=== PATIENT | male | born 1975 | race Caucasian/White ===

== ENCOUNTER 2024-05-27 11:48 | Inpatient (IN) | payer OTHER ==
[2024-05-27 12:28] VITALS: BMI 27.1
[2024-05-27] MEDS ORDERED: BISMUTH SUBSALICYLATE 524 MG/30 ML PO PRN (12:45)
[2024-05-27] MEDS ORDERED: ACETAMINOPHEN 325 MG TABLET (FP) PO PRN (12:45)
[2024-05-27] MEDS ORDERED: NALOXONE (NARCAN) HCL 4 MG/0.1 ML SPRAY NS PRN (12:45)
[2024-05-27] MEDS ORDERED: NICOTINE POLACRILEX 2 MG LOZENGE BC PRN (12:45)
[2024-05-27] MEDS ORDERED: ONDANSETRON *ODT* 4 MG TABLET SL PRN (12:45)
[2024-05-27] MEDS ORDERED: DICYCLOMINE HCL 10 MG CAPSULE PO PRN (12:45)
[2024-05-27] MEDS ORDERED: BENZOCAINE/MENTHOL (CHLORASEPTIC ) LOZENGE MM PRN (12:45)
[2024-05-27] MEDS ORDERED: guaiFENesin 600 MG TABLET.ER (FP) PO PRN (12:45)
[2024-05-27] MEDS ORDERED: BENZONATATE 200 MG CAPSULE PO PRN (12:45)
[2024-05-27] MEDS ORDERED: amLODIPine BESYLATE 5 MG TABLET (FP) ONE ×2 (12:45→12:47)
[2024-05-27] MEDS ORDERED: NICOTINE POLACRILEX 2 MG GUM BUC PRN (12:45)
[2024-05-27] MEDS ORDERED: IBUPROFEN 400 MG TABLET (FP) PO PRN (12:45)
[2024-05-27] MEDS ORDERED: LOPERAMIDE HCL 2 MG CAPSULE PO PRN (12:45)
[2024-05-27] MEDS: amLODIPine BESYLATE 10 MG TABLET (FP) PO ONE (12:49)
[2024-05-27] MEDS: amLODIPine BESYLATE 5 MG TABLET (FP) PO ONE (13:45)
[2024-05-27] MEDS ORDERED: diazePAM 5 MG TABLET ONE (13:53)
[2024-05-27] MEDS ORDERED: NICOTINE 21 MG/24 HOURS TOPICAL PATCH ONE (13:53)
[2024-05-27] MEDS ORDERED: INSULIN (NOVOLOG) ASPART 100 UNITS/ML 10ML VIAL ONE ×2 (13:54→17:12)
[2024-05-27] MEDS ORDERED: HYDROCHLOROTHIAZIDE 12.5 MG CAPSULE (FP) ONE (13:55)
[2024-05-27] MEDS: HYDROCHLOROTHIAZIDE 12.5 MG CAPSULE (FP) PO SCH (13:57)
[2024-05-27] MEDS: diazePAM 5 MG TABLET PO SCH (13:57)
[2024-05-27] MEDS: NICOTINE 21 MG/24 HOURS TOPICAL PATCH TD SCH (13:57)
[2024-05-27] MEDS: INSULIN (NOVOLOG) ASPART 100 UNITS/ML 10ML VIAL SQ ONE (13:58)
[2024-05-27] MEDS: INSULIN (NOVOLOG) ASPART 100 UNITS/ML 10ML VIAL SQ SCH (16:32)
[2024-05-27] MEDS: metFORMIN HCL 500 MG TABLET (FP) PO SCH (16:33)
[2024-05-27] MEDS: diazePAM 5 MG TABLET PO PRN (19:50)
[2024-05-27] MEDS: IBUPROFEN 600 MG TABLET (FP) PO PRN (19:51)
[2024-05-27] MEDS: METOPROLOL TARTRATE 25 MG TABLET (FP) PO ONE (20:01)
[2024-05-27] MEDS: MELATONIN 5 MG TABLETS PO SCH (22:22)
[2024-05-27] MEDS: METHOCARBAMOL 500 MG TABLET PO PRN (22:22)
[2024-05-27] MEDS: ATORVASTATIN CA 20 MG TABLET (FP) PO SCH (22:22)
[2024-05-27] MEDS: THIAMINE 100 MG TABLET PO SCH (22:23)
[2024-05-27] MEDS: hydrOXYzine PAMOATE 25 MG CAPSULE (FP) PO PRN (22:25)
[2024-05-28] MEDS: ESCITALOPRAM OXALATE 10 MG TABLET PO SCH (09:25)
[2024-05-28] MEDS: ASPIRIN COATED 81 MG TABLET.EC PO SCH (09:25)
[2024-05-28] MEDS: PRENATAL VITAMINS W/ FOLIC ACID TABLET (FP) PO SCH (09:25)
[2024-05-28] MEDS: amLODIPine BESYLATE 10 MG TABLET (FP) PO SCH (09:25)
[2024-05-28 11:25] LABS: POTASSIUM 4.6 mmol/L (3.5-5.1)
[2024-05-28 11:32] LABS: HEMATOCRIT 45.4 % (35.4-49); HEMOGLOBIN 15.1 GM/dL (11.7-16.9); MCHC 33.3 g/dl (32.0-35.9); MEAN CELL VOLUME 90.2 fl (80-96); MEAN PLT VOLUME 9.3 fl (7.5-11.1); PLATELET COUNT 263 10^3/uL (134-434); RBC 5.04 M/mm3 (4.00-5.60); RDW 12.9 % (11.9-15.9); WHITE BLOOD COUNT 12.8 K/mm3 (4.0-10.0)
[2024-05-28 11:34] LABS: ALBUMIN 4.9 g/dl (3.4-5.0); CALCIUM 10.5 mg/dL (8.5-10.1)
[2024-05-28 11:35] LABS: BLOOD UREA NITROGEN 19.2 mg/dL (7-18)
[2024-05-28 11:38] LABS: CREATININE 1.5 mg/dL (0.55-1.3)
[2024-05-28 11:39] LABS: BILIRUBIN,TOTAL 0.3 mg/dL (0.2-1)
[2024-05-28] MEDS ORDERED: methaDONE HCL 40 MG DISPERSABLE TABLET PO ONE (12:48)
[2024-05-28] MEDS ORDERED: metFORMIN HCL 500 MG TABLET (FP) PO SCH (17:00)
[2024-05-28] MEDS ORDERED: INSULIN (NOVOLOG) ASPART 100 UNITS/ML 10ML VIAL ONE ×2 (17:35→22:13)
[2024-05-28] MEDS ORDERED: ATORVASTATIN CA 10 MG TABLET (FP) PO SCH (22:00)
[2024-05-28] MEDS: SUVOREXANT 10 MG TABLET PO PRN (22:25)
[2024-05-29] MEDS: diazePAM 5 MG TABLET PO SCH (05:35)
[2024-05-29] MEDS: MAG HYDROX/AL HYDROX/SIMETH 30 ML UNIT-DOSE CUP PO PRN (12:52)
[2024-05-29] MEDS ORDERED: INSULIN (NOVOLOG) ASPART 100 UNITS/ML 10ML VIAL ONE ×2 (16:51→22:33)
[2024-05-29] MEDS: MAGNESIUM HYDROX 2400MG/30ML ORAL SUSPENSION 30 ML CUP PO PRN (17:17)
[2024-05-29] MEDS: POLYETHYLENE GLYCOL (HEALTHYLAX) 3350 17 GM PACKET PO PRN (22:47)
[2024-05-30] MEDS: diazePAM 5 MG TABLET PO SCH (05:32)
[2024-05-30] MEDS ORDERED: INSULIN (NOVOLOG) ASPART 100 UNITS/ML 10ML VIAL ONE (05:37)
[2024-05-30] MEDS: INSULIN (NOVOLOG) ASPART 100 UNITS/ML 10ML VIAL SQ SCH (17:49)
[2024-05-31] MEDS: diazePAM 5 MG TABLET PO ONE (05:58)
[2024-05-31] MEDS: PANTOPRAZOLE 40 MG TABLET PO SCH (15:19)
[2024-05-31] MEDS ORDERED: INSULIN (NOVOLOG) ASPART 100 UNITS/ML 10ML VIAL ONE ×2 (17:07→21:37)
[2024-06-01] MEDS: NALOXONE (NYS OPIOID OVERDOSE PROGRAM) 4 MG/0.1 ML SPRAY NS SCH (09:49)
[2024-06-01] MEDS ORDERED: INSULIN (NOVOLOG) ASPART 100 UNITS/ML 10ML VIAL ONE ×4 (11:24→23:21)
[2024-06-02] MEDS ORDERED: INSULIN ASPART SLIDING SCALE (NOVOLOG) 1 VIAL SQ ONE (08:07)
[2024-06-02 08:59] VITALS: BP 133/82; PULSE 75; RESP 16; TEMP 97.6
[2024-06-02 09:03] LABS: POTASSIUM 3.7 mmol/L (3.5-5.1)
[2024-06-02 09:05] LABS: ALBUMIN 3.5 g/dl (3.4-5.0); BLOOD UREA NITROGEN 18.2 mg/dL (7-18); CALCIUM 8.8 mg/dL (8.5-10.1)
[2024-06-02 09:08] LABS: CREATININE 0.9 mg/dL (0.55-1.3); PHOSPHOROUS 3.9 mg/dL (2.5-4.9)
[2024-06-02 09:12] LABS: BASO % 0.6 % (0-2.0); EOS % 3.4 % (0-4.5); HEMOGLOBIN 13.2 GM/dL (11.7-16.9); LYMPH % 42.8 % (8-40); MCHC 35.5 g/dl (32.0-35.9); MEAN CELL VOLUME 87.3 fl (80-96); MEAN PLT VOLUME 8.5 fl (7.5-11.1); NEUT % 40.2 % (42.8-82.8); PLATELET COUNT 193 10^3/uL (134-434); RBC 4.25 M/mm3 (4.00-5.60); RDW 12.8 % (11.9-15.9); WHITE BLOOD COUNT 6.8 K/mm3 (4.0-10.0)
[2024-06-02] MEDS: methaDONE HCL 40 MG DISPERSABLE TABLET PO ONE (09:49)
[2024-06-02] MEDS ORDERED: INSULIN (NOVOLOG) ASPART 100 UNITS/ML 10ML VIAL ONE (11:06)
== END 2024-06-02 12:27 | disposition home or self-care (01) | DRG 773 ==
LOC: YASAS 11:48 → Y6N 13:14
PROVIDERS: ADMIT Allergy & Immunology; ATTEND Surgery
PROC: HZ2ZZZZ Detoxification Services for Substance Abuse Treatment (ICD-10-PCS; principal; 2024-05-27)
DX: F10.230 Alcohol dependence with withdrawal, uncomplicated (principal); F11.20 Opioid dependence, uncomplicated; F14.10 Cocaine abuse, uncomplicated; F17.210 Nicotine dependence, cigarettes, uncomplicated; F19.282 Other psychoactive substance dependence with psychoactive substance-induced sleep disorder; F19.24 Other psychoactive substance dependence with psychoactive substance-induced mood disorder; F32.9 Major depressive disorder, single episode, unspecified; I10 Essential (primary) hypertension; E11.9 Type 2 diabetes mellitus without complications; Z79.84 Long term (current) use of oral hypoglycemic drugs; R73.9 Hyperglycemia, unspecified
CPT/HCPCS: 36415; 80053; 80069; 80305; 80307; 82306; 82962; 83036; 83970; 85025; 85027; 86780; 93005; 93010